=== PATIENT | female | born 1985 | race Two or more races ===

== ENCOUNTER → 2024-12-18 | Outpatient (CLI) | payer MEDICAID, SELFPAY ==
--- NOTE | 2024-12-18 | XR_ITS ---
Examination: Complete OB ultrasound greater than 14 weeks Date and time of exam: December 18, 2024, 1337 hours INDICATIONS: Supervision of otherwise normal Findings: Viable intrauterine single fetus with single amniotic sac presentation transverse Cardiac motion 153 bpm Placenta anterior grade 0 Umbilical cord insertion 3 vessels seen Amniotic fluid index 4.5 cm spine anterior Cervix 3.8 cm Ovaries obscured by bowel gas. Composite estimated gestational age based on BPD, head circumference, abdominal circumference, femur length is 16 weeks 2 days Estimated weight 145 g. Survey of intracranial anatomy, spinal anatomy, abdominal anatomy, four-chamber heart performed with no abnormalities identified. Impression: Viable intrauterine gestation in transverse presentation.
== END | disposition home or self-care (01) ==
LOC: SDIM 11:16
DX: O09.93 Supervision of high risk pregnancy, unspecified, third trimester (principal); Z3A.16 16 weeks gestation of pregnancy
CPT/HCPCS: 76805